=== PATIENT | female | born 1970 | race Caucasian/White ===

== ENCOUNTER 2019-04-10 22:46 | Emergency (ER) | payer BC ==
[2019-04-10 22:56] VITALS: TEMP 98.1
[2019-04-10] MEDS ORDERED: ASPIRIN 81 MG PO STA (23:11)
[2019-04-11] LABS: Basophils # (A) 0.1 k/uL (0-0.2); Basophils % (A) 1 %; Eosinophils # (A) 0.3 k/uL (0-0.7); Eosinophils % (A) 3 %; HCT 38.8 % (34.0-46.0); HGB 13.2 gm/dL (11.4-16.0); Lymphocytes # (A) 2.2 k/uL (1.0-4.8); Lymphocytes % (A) 24 %; MCH 30.1 pg (25.0-35.0); MCHC 34.1 g/dL (31.0-37.0); MCV 88.4 fL (80.0-100.0); Mean Platelet Volume 7.3; Monocytes # (A) 0.6 k/uL (0-1.0); Monocytes % (A) 7 %; Neutrophils # (A) 5.7 k/uL (1.3-7.7); Neutrophils % (A) 63 %; Platelet Count 300 k/uL (150-450); RBC 4.39 m/uL (3.80-5.40); RDW 14.6 % (11.5-15.5)
--- NOTE | 2019-04-11 00:15 | ED ---
Chest Pain HPI - General Chief Complaint: Chest Pain Stated Complaint: SOB Chest Pain Time Seen by Provider: 04/10/19 23:09 Source: patient Mode of arrival: wheelchair Limitations: no limitations - History of Present Illness Initial Comments: Patient is a 48-year-old female presents emergency Department with chest tightness. Patient reports approximately 3 days ago she developed chest tightness but no chest pain, chest palpitations of shortness of breath. Patient reports she is an asthmatic and attempted using her albuterol inhaler which relieved some of the tightness. Patient reports she has been diaphoretic over the past few weeks with sudden episodes of diaphoresis . Patient reports she is going through menopause at the moment and thinks these are possible "hot flashes." Patient also reports a history of anxiety and panic attacks. Patient does not take any psychiatric medication to treat those. Patient denies nausea, vomiting, diarrhea. Patient denies fever, headaches, blurry vision, gait instability, one-sided weakness or paresthesias. Patient denies syncope but does report feeling dizzy when standing up too quickly from supine position. Patient reports that she is unsure whether her symptoms are due to her anxiety or if it is an underlying cardiovascular issue. - Related Data Home Medications Medication Instructions Recorded Confirmed Ibuprofen [Motrin Ib] 200 mg PO DAILY PRN 04/10/19 04/10/19 Levalbuterol Hfa Inhaler [Xopenex 1 puff INHALATION RT-DAILY PRN 04/10/19 04/10/19 Hfa Inhaler] Allergies Allergy/AdvReac Type Severity Reaction Status Date / Time codeine Allergy Confusion Verified 04/10/19 23:31 gluten Allergy Anaphylaxis Verified 04/10/19 23:31 Penicillins Allergy Rash/Hives Verified 04/10/19 23:31 Review of Systems ROS Statement: Those systems with pertinent positive or pertinent negative responses have been documented in the HPI. ROS Other: All systems not noted in ROS Statement are negative. EKG Findings - EKG Comments: EKG Findings:: Normal sinus rhythm, possible left atrial enlargement, borderline ECG. Ventricular rate 75, MD interval 180, QRS duration 104, QT/QTc 394/4 39,P-R-T axes 59 1 19 Past Medical History Past Medical History: Asthma, Seizure Disorder History of Any Multi-Drug Resistant Organisms: None Reported Past Surgical History: No Surgical Hx Reported Past Psychological History: Anxiety, Depression, PTSD Smoking Status: Never smoker Past Alcohol Use History: None Reported Past Drug Use History: None Reported General Exam - General Exam Comments Initial Comments: Patient is neurovascularly intact. Limitations: no limitations General appearance: alert, in no apparent distress, anxious, obese Head exam: Present: atraumatic, normocephalic, normal inspection Eye exam: Present: normal appearance, PERRL, EOMI Pupils: Present: normal accommodation ENT exam: Present: normal exam, normal oropharynx, mucous membranes moist, TM's normal bilaterally, normal external ear exam Neck exam: Present: normal inspection, full ROM. Absent: tenderness, lymphadenopathy Respiratory exam: Present: normal lung sounds bilaterally Cardiovascular Exam: Present: regular rate, normal rhythm, normal heart sounds Extremities exam: Present: normal inspection, full ROM, normal capillary refill, other (+2 dorsalis pedis and posterior tibialis bilaterally. +2 ulnar and radial pulses bilaterally.) Back exam: Present: normal inspection, full ROM. Absent: tenderness, CVA tenderness (R), CVA tenderness (L) Neurological exam: Present: alert, oriented X3 Psychiatric exam: Present: normal affect, normal mood Skin exam: Present: warm, intact, normal color Course Vital Signs 04/10/19 22:51 Temperature 98.1 F Pulse Rate 74 Respiratory 19 Rate Blood Pressure 138/87 O2 Sat by Pulse 97 Oximetry Chest Pain MDM - MDM Patient is a 48-year-old female presents emergency Department with chest tightness. Chest x-ray is indicative of left basilar Atectasis/chronic changes. EKG is unremarkable. Labs are unremarkable. Troponin is not elevated. Coags are within normal limits. At this point I suspect the patient's chest tightness is most likely due to a respiratory cause which could be exacerbated from a possible panic attack secondary to anxiety. Also the patient experienced relief after using albuterol treatment. I suspect the diaphoretic episodes to be a result of menopause as the patient experienced him prior to the onset of chest t ightness. Strict return parameters were thoroughly discussed with patient who is understanding and agreeable. Case discussed with physician. Disposition Clinical Impression: Chest tightness Disposition: HOME SELF-CARE Condition: Stable Instructions (If sedation given, give patient instructions): Chest Pain (ED) Additional Instructions: Please follow with primary care. Please return to emergency department if symptoms worsen. Is patient prescribed a controlled substance at d/c from ED?: No Referrals: Sung,Yordy, MD [Primary Care Provider] - 1-2 days Time of Disposition: 01:36
[2019-04-11 00:21] LABS: INR 0.9 (<1.2); Partial Thromboplastin Time 27.1 sec (22.0-30.0); Prothrombin Time 9.8 sec (9.0-12.0)
[2019-04-11 00:37] LABS: ALT 27 U/L (9-52); AST 21 U/L (14-36); African American GFR (CKD) >90 (>60 ml/min/1.73 sqM); Albumin 3.8 g/dL (3.5-5.0); Alkaline Phosphatase 78 U/L (38-126); Anion Gap 10 mmol/L; Blood Urea Nitrogen 13 mg/dL (7-17); Calcium 8.9 mg/dL (8.4-10.2); Carbon Dioxide 25 mmol/L (22-30); Chloride 105 mmol/L (98-107); Glucose 102 mg/dL (74-99); Magnesium 2.3 mg/dL (1.6-2.3); Potassium 3.8 mmol/L (3.5-5.1); Sodium 140 mmol/L (137-145); Total Bilirubin 0.2 mg/dL (0.2-1.3); Total Protein 6.2 g/dL (6.3-8.2)
--- NOTE | 2019-04-11 00:51 | XR ---
EXAM: XR Chest, 2 Views CLINICAL HISTORY: ITS.REASON XR Reason: Chest PainSOB, Hx of asthma. no prior. TECHNIQUE: Frontal and lateral views of the chest. COMPARISON: No relevant prior studies available. FINDINGS: Lungs: Linear left basilar atelectasis/chronic changes. Pleural space: Unremarkable. No pneumothorax. Heart: Unremarkable. No cardiomegaly. Mediastinum: Unremarkable. Bones/joints: Unremarkable. IMPRESSION: Linear left basilar atelectasis/chronic changes. No focal consolidation or pleural effusion.
[2019-04-11 02:29] VITALS: BP 141/83; PULSE 77; RESP 16
== END 2019-04-11 02:29 | disposition home or self-care (01) ==
LOC: EC 22:46
DX: R07.89 Other chest pain (principal); R61 Generalized hyperhidrosis; R42 Dizziness and giddiness; J45.909 Unspecified asthma, uncomplicated; Z88.0 Allergy status to penicillin; Z88.5 Allergy status to narcotic agent; Z91.018 Allergy to other foods; Z78.0 Asymptomatic menopausal state
CPT/HCPCS: 36415; 71046; 80053; 83735; 84484; 85025; 85610; 85730; 93005; 99285

== ENCOUNTER → 2024-01-24 | Outpatient (CLI) | payer BC ==
--- NOTE | 2024-01-24 14:42 | MR ---
EXAMINATION TYPE: MR brain wo/w con DATE OF EXAM: 01/24/2024 2:30 PM CLINICAL INDICATION:Female, 53 years old with history of D35.2 BENIGN NEOPLASM OF PITUITARY GLAND; PH H, Hx of Pituitary tumor, F/U COMPARISON: None TECHNIQUE: Multi planar, multi sequence imaging was performed through the brain including: T1, T2, In version recovery, susceptibility weighted imaging and gradient echo imaging and Diffusion weighted im aging. The patient was then given intravenous contrast and multi planar, T1 fat-saturation images wer e obtained. IV Contrast: 6.5 cc Gadavist FINDINGS: Mild cerebellar tonsillar ectopia with the tonsils extending below the foramen magnum appro ximately 4 mm. Pituitary masses definitively visualized however there are no special pituitary mass s equences. The murillo-white junctions, ventricular system, basal cisterns appear unremarkable. Diffusio n-weighted imaging shows no evidence of restricted diffusion to suggest acute/subacute infarct. Intra cranial arterial flow voids are maintained. Midline structures show no abnormality. Scattered foci of high T2 signal intensity are seen within the periventricular white matter. The susceptibility weight ed images do not reveal any evidence for micro-hemorrhage. After administration of gadolinium, no abn ormal enhancement is seen. The bone marrow signal is within normal limits. Paranasal sinuses and mastoid air cells: There is paranasal sinus disease with mucosal thickening of the maxillary sinuses. Visualized orbits: Orbital contents are intact. IMPRESSION: Motion limited exam. 1. No pituitary tumor definitively visualized. Special pituitary sequences were not performed. 2. No evidence of intracranial mass, acute/subacute infarct, or abnormal enhancement. 3. Nonspecific white matter changes, likely related to small vessel ischemic disease. 4. Mild cerebellar tonsillar ectopia.
== END | disposition home or self-care (01) ==
LOC: RADMRIMAIN 13:32
PROVIDERS: ATTEND Family Medicine
DX: D35.2 Benign neoplasm of pituitary gland (principal); Q04.8 Other specified congenital malformations of brain; R90.82 White matter disease, unspecified
CPT/HCPCS: 70553; A9585

== ENCOUNTER → 2024-06-09 | Outpatient (CLI) | payer BC ==
--- NOTE | 2024-06-23 10:50 | MR ---
EXAMINATION TYPE: MR pituitary wo/w con DATE OF EXAM: 06/09/2024 COMPARISON: None HISTORY: Elevated prolactin, pituitary tumor CONTRAST: Performed utilizing 7 mL intravenous Gadavist gadolinium contrast. TECHNIQUE: Multiplanar, multiecho imaging on a 3.0 Lilliana magnet is performed through the brain. Stud y is performed within 24 hours of arrival to the hospital. Movement during the exam limits evaluation . The craniovertebral junction is normal. Pituitary is imaged post contrast. Pituitary appears homogenous. No macroadenoma is evident. Left pit uitary is slightly portillo than the right. No underlying microadenoma is evident however. This area ap pears homogenous post enhancement. IMPRESSION: 1. No discrete microadenoma identified. There is some limitation due to motion artifact. [facility], , 06/23/2024 10:48 AM
== END | disposition home or self-care (01) ==
LOC: RADMRIMAIN 07:49
PROVIDERS: ATTEND Psychiatry & Neurology Neurology
DX: D35.2 Benign neoplasm of pituitary gland (principal)
CPT/HCPCS: 70553